=== PATIENT | female | born 1965 | race Caucasian/White ===

== ENCOUNTER 2018-06-07 15:55 | Emergency (ER) | payer OTHER ==
[2018-06-07] MEDS ORDERED: Adacel Vial IM ONE ×2 (16:39→17:03)
[2018-06-07] MEDS ORDERED: XYLOCAINE 2% HCL 20 ML MDV IJ ONE (16:40)
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
[2018-06-07] MEDS ORDERED: XYLOCAINE 2% HCL 20 ML MDV ONE (16:52)
[2018-06-07] MEDS ORDERED: Norco 10/325 MG Tablet PO ONE (17:58)
[2018-06-07 18:00] VITALS: BP 188/109; PULSE 72; O2SAT 100
[2018-06-07] MEDS ORDERED: Norco 10/325 MG Tablet ONE (18:01)
--- NOTE | 2018-06-07 22:23 | XRAY ---
Indication: 4th finger laceration. Comparison: None 3 views of the left hand demonstrates 4th tuft soft tissue swelling/laceration, mild/moderate degenerative changes 2nd-5th DIP, and moderate degenerative changes base of 1st metacarpal. No other bony, articular, or soft tissue abnormalities.
== END 2018-06-07 18:20 | disposition home or self-care (01) ==
LOC: ED 15:55
DX: S61.215A Laceration without foreign body of left ring finger without damage to nail, initial encounter (principal); W22.09XA Striking against other stationary object, initial encounter; Y92.512 Supermarket, store or market as the place of occurrence of the external cause
CPT/HCPCS: 73130; 90471; 90715; 99284; A9270-GY

== ENCOUNTER 2018-06-17 16:27 | Emergency (ER) | payer OTHER ==
--- NOTE | 2018-06-17 16:35 | ERPHSYRPT ---
- History of Present Illness Time Seen by Provider: 06/17/18 16:34 Source: patient Exam Limitations: no limitations Physician History: 52 y/o white female presents s/p finger lac repair on 06/07/18 and here for wound check and suture removal. Timing/Duration: day(s) (10) Quality: other (no symptoms) Location: hands (left ring finger. ) Associated Symptoms: denies symptoms Allergies/Adverse Reactions: No Known Drug Allergies Allergy (Unverified 06/07/18 17:01) - Review of Systems Constitutional: No Symptoms Eyes: No Symptoms Ears, Nose, & Throat: No Symptoms Respiratory: No Symptoms Cardiac: No Symptoms Abdominal/Gastrointestinal: No Symptoms Genitourinary Symptoms: No Symptoms Musculoskeletal: No Symptoms Skin: No Symptoms Neurological: No Symptoms Psychological: No Symptoms Endocrine: No Symptoms Hematologic/Lymphatic: No Symptoms Immunological/Allergic: No Symptoms All Other Systems: Reviewed and Negative - Past Medical History Pertinent Past Medical History: No Neurological History: No Pertinent History ENT History: No Pertinent History Cardiac History: No Pertinent History Respiratory History: No Pertinent History Endocrine Medical History: No Pertinent History Musculoskeletal History: No Pertinent History GI Medical History: No Pertinent History History: No Pertinent History Psycho-Social History: No Pertinent History Female Reproductive Disorders: No Pertinent History - Past Surgical History Past Surgical History: No Neuro Surgical History: No Pertinent History Cardiac: No Pertinent History Respiratory: No Pertinent History Gastrointestinal: No Pertinent History Genitourinary: No Pertinent History Musculoskeletal: No Pertinent History - Social History Smoking Status: Current every day smoker Exposure to second hand smoke: No Drug Use: none Patient Lives Alone: No - Physical Exam General Appearance: no apparent distress, alert Eye Exam: PERRL/EOMI Ears, Nose, Throat Exam: normal ENT inspection Neck Exam: normal inspection, non-tender, supple, full range of motion Gastrointestinal/Abdomen Exam: No tenderness Pelvic Exam: not done Rectal Exam: not done Back Exam: normal range of motion Extremity Exam: normal inspection, normal range of motion Neurologic Exam: alert, oriented x 3, cooperative, metrology technician II-XII nml as tested Skin Exam: laceration (repair site healing without infection. suture present) Lymphatic Exam: No adenopathy SpO2 Interpretation: normal O2 Delivery: Room Air - Course Nursing assessment & vital signs reviewed: Yes - Progress Progress: improved Progress Note: 06/17/18 16:41 sutures removed by rn/bernard no complications Counseled pt/family regarding: diagnosis - Departure Time of Disposition: 16:42 Departure Disposition: Home Clinical Impression: Visit for wound check, Visit for suture removal Condition: Stable Critical Care Time: No Referrals: DOCTOR,NO FAMILY [Primary Care Provider] - Additional Instructions: keep site clean daily. follow up with primary doctor for further management
[2018-06-17 16:38] VITALS: O2SAT 98
[2018-06-17 17:21] VITALS: BP 170/100; PULSE 76
== END 2018-06-17 17:26 | disposition home or self-care (01) ==
LOC: ED 16:27
DX: Z48.02 Encounter for removal of sutures (principal)
CPT/HCPCS: 99283; G0463